=== PATIENT | male | born 1955 | race Caucasian/White ===

== ENCOUNTER → 2019-03-15 07:20 | Outpatient (CLI) | payer OTHER, SELFPAY ==
--- NOTE | 2019-03-15 | DI.MRI.S_ITS ---
PROCEDURE: MR HEAD/BRAIN WO/W CON INDICATIONS: Near syncope TECHNIQUE: Noncontrast axial T1 spin echo, axial T2 fast spin echo, sagittal and axial FLAIR, coronal T2 fast spin echo, axial gradient echo, axial diffusion and ADC through the brain. After the administration of contrast, axial and coronal T1 spin echo with fat saturation through the brain. COMPARISON: None. FINDINGS: Image quality: Excellent. CSF spaces: Basal cisterns are patent. No extra-axial fluid collections. Ventricles are normal in size and shape. Brain: No midline shift. No intracranial bleeds or masses. No abnormal intracranial enhancement. There is cerebral volume loss for age. There is periventricular white matter chronic small vessel ischemic change. The brainstem appears normal. Diffusion-weighted images demonstrate no acute ischemic insults. No chronic ischemic insults. Normal intravascular flow voids are present. Skull and face: Calvarial marrow is normal in signal. Orbits appear normal. Sinuses: Sinuses and mastoids appear clear. IMPRESSION: Diffuse small white matter signal changes, probably represent chronic microvascular ischemic disease, versus statistically less likely demyelination or other infectious, inflammatory, neurodegenerative etiology, technically nonspecific. No abnormal enhancement. No evidence of acute ischemia Dictated by: Gio Montero M.D. on 03/15/2019 at 9:28 Approved by: Gio Montero M.D. on 03/15/2019 at 9:33
== END ==
PROVIDERS: Visit Provider Family Medicine
DX: R55 Syncope and collapse (principal)
CPT/HCPCS: 70553

== ENCOUNTER → 2024-01-19 09:31 | Outpatient (CLI) | payer MEDICARE, SELFPAY ==
--- NOTE | 2024-01-19 10:47 | DI.NM.S_ITS ---
DATE OF SERVICE: 01/19/2024 NUCLEAR CARDIOLOGY MYOCARDIAL PERFUSION STUDY Procedure: Exercise treadmill stress and rest myocardial perfusion imaging with gating to assess ejection fraction and regional wall motion. Ordering Provider: Aamir Clements MD. Indications: The patient is a 68-year-old male with paroxysmal atrial fibrillation and atrial flutter with near syncope and documented myocardial bridge of the LAD. Cardiac Stress: The patient was able to exercise for 9 minutes and 30 seconds on a standard Hans protocol suggesting very good exercise capacity with an DEMARCUS of -27%, achieving 10.2 METS. He had an accelerated heart rate response to exercise with a resting heart rate of 65 bpm while supine, but increasing to 105 bpm with standing, and increasing to 124 bpm within the first minute of exercise, achieving a maximum heart rate of 166 bpm (109% of his predicted maximum). He had a mild hypertensive blood pressure response with a resting blood pressure of 138/90 that increased to a maximum of 208/110. He had no chest discomfort or other anginal symptoms. His resting ECG shows atrial flutter with a controlled ventricular response but with fairly rapid heart rate acceleration with stress. The ST segments appear normal at rest with no significant ST-segment shifts with exercise. There are no other arrhythmias except for occasional PVCs in recovery without any complex ventricular ectopy. At 5 minutes of exercise at a heart rate of 135 bpm, 24.6 millicuries of technetium-99m Myoview was injected and he was imaged 15 minutes later using a gated SPECT acquisition protocol. Earlier in the day while at rest, he had been injected with 11.1 millicuries of technetium-99m Myoview and imaged 15 minutes later, again using a gated SPECT acquisition protocol. Findings: 1. Raw data. There is fair myocardial tracer uptake with some evidence for attenuation artifact. The lung/heart ratio is normal at 0.27 with a normal TID ratio of 0.95. 2. Quantitated gated SPECT: Post-stress ejection fraction is estimated at 62% without any focal wall motion abnormality and specifically the inferior wall appears to have normal contractility. There is mildly increased tracer uptake of the right ventricular free wall which can be a sign of a right ventricular overload condition but requires clinical correlation. The resting ejection fraction is 60% with a similar contraction pattern. Resting end-diastolic volume is mildly increased at 186 mL, but may be reflective of the patient's large body size. 3. Myocardial perfusion imaging: Post-stress supine images show a fairly normal myocardial perfusion pattern except a mild perfusion defect in the mid to distal inferior wall in a pattern consistent with diaphragmatic attenuation, supported by its resolution on the prone images which have a normal uniform perfusion pattern. The resting images show an identical perfusion pattern to the supine images without any improvement in the inferior defect. Impression: 1. Normal myocardial perfusion study for ischemia. 2. Mild, fixed inferior perfusion defect that resolves on prone imaging, most consistent with diaphragmatic attenuation artifact. There is no compelling evidence for any significant myocardial ischemia or previous myocardial infarction. 3. Normal left ventricular systolic function with mildly increased left ventricular volumes. There are no focal wall motion abnormalities. 4. Very good exercise capacity without angina or ECG evidence of ischemia. The patient presented with atrial flutter with a controlled ventricular response although with a fairly prompt accelerated heart rate response to exercise. He had a mild hypertensive blood pressure response and had occasional PVCs, predominantly in the recovery and without any complex ventricular ectopy. dd:01/19/2024 16:39:00 dt DICTATING MD/COPIES TO: MD Kim
--- NOTE | 2024-01-22 10:40 | DI.NM.S_ITS ---
DATE OF SERVICE: 01/19/2024 NUCLEAR CARDIOLOGY MYOCARDIAL PERFUSION STUDY PROCEDURE: Exercise treadmill stress and rest myocardial perfusion imaging with gating to assess ejection fraction and regional wall motion. ORDERING PROVIDER: Aamir Clements MD. INDICATIONS: The patient is a 68-year-old male with a history of paroxysmal atrial fibrillation and atrial flutter with near syncope and previous myocardial bridge of the LAD. CARDIAC STRESS: The patient was able to exercise for 9 minutes and 30 seconds on a standard Hans protocol suggesting very good exercise capacity with an DEMARCUS of -27%, achieving 10.2 METS. He had an accelerated heart rate response to exercise with a resting heart rate of 65 bpm while supine, but increasing to 105 bpm with standing and increasing to 124 bpm within the first minute of exercise, achieving a maximum heart rate of 166 bpm (109% of his predicted maximum). He had a mild hypertensive blood pressure response with a resting blood pressure of 138/90 that increased to a peak of 208/110. He had no chest discomfort or other anginal symptoms. His resting ECG shows atrial flutter with a controlled ventricular response, but with fairly rapid heart rate acceleration. ST segments appeared normal at rest without any significant ST-segment shifts. There were no other arrhythmias except for occasional PVCs in recovery without any complex ventricular ectopy. At 5 minutes of exercise at a heart rate of 135 bpm, 24.6 millicuries of technetium-99m Myoview was injected and he was imaged 15 minutes later using a gated SPECT acquisition protocol. Earlier, in the day while at rest, he had been injected with 11.1 millicuries of technetium-99m Myoview and was imaged 15 minutes later, again using a gated SPECT acquisition protocol. FINDINGS: 1.Raw data. There is fair myocardial tracer uptake with some evidence for attenuation artifact. The lung/heart ratio is normal at 0.27 with a normal TID ratio of 0.95. 2.Quantitated gated SPECT: Post-stress ejection fraction is estimated at 62% without any focal wall motion abnormality and specifically the inferior wall appears to have normal contractility. There is slightly increased tracer uptake over the right ventricular free wall, which can be a sign of a right ventricular stress condition. The resting ejection fraction is 60% with a similar contraction pattern. Resting end-diastolic volume is mildly increased at 186 mL, but may be reflective of the patient's large body size. 3.Myocardial perfusion imaging: Post-stress supine images show a fairly normal myocardial perfusion pattern, although with a mild perfusion defect in the mid to distal inferior wall in a pattern consistent with diaphragmatic attenuation, supported by its resolution on the prone images, revealing a normal perfusion pattern. The resting images show an identical perfusion pattern without any perfusion defects. IMPRESSION: 1.Normal myocardial perfusion study for ischemia. 2.Mild fixed inferior perfusion defect that resolves on prone imaging, most consistent with diaphragmatic attenuation artifact. There is no compelling evidence for any significant myocardial ischemia or previous myocardial infarction. 3.Normal left ventricular systolic function with mildly increased left ventricular volumes. There are no focal wall motion abnormalities. 4.Very good exercise capacity without angina or ECG evidence of ischemia. The patient presented with atrial flutter with a controlled ventricular response, but with a fairly prompt accelerated heart rate response to exercise. He had a mild hypertensive blood pressure response and had occasional premature ventricular contractions, predominantly in the recovery period without any complex ventricular ectopy. Cecil Malagon - NATE/douglas/SCOTT doc#: [id number]/job#: [id number] dd: 01/19/2024 16:39:00 dt: 01/19/2024 21:22:00 DICTATING MD/COPIES TO: Nikos Weir MD; Aamir Clements MD COPIES MNE: ALEJANDRO;
== END ==
PROVIDERS: PCP Physician Assistant Medical; Referring Provider Internal Medicine Cardiovascular Disease; Visit Provider Internal Medicine Cardiovascular Disease
DX: I48.0 Paroxysmal atrial fibrillation (principal); I48.3 Typical atrial flutter
CPT/HCPCS: 78452; 93017; A9502

== ENCOUNTER → 2024-04-21 10:26 | Outpatient (CLI) | payer MEDICARE, SELFPAY ==
--- NOTE | 2024-04-21 10:27 | DI.MRI.S_ITS ---
PROCEDURE: MR KNEE LT WO CON INDICATIONS: INTERNAL DERANGEMENT, LEFT KNEE TECHNIQUE: Noncontrast sagittal PD fast spin echo and T2 fast spin echo with fat saturation, sagittal 3-D FLASH with fat saturation; coronal T1 spin echo and PD fast spin echo with fat saturation, and axial PD fast spin echo with fat saturation through the knee. COMPARISON: [facility] [place], CR, XR KNEE 4+ VIEWS RIGHT, 02/10/2024, 10:10. FINDINGS: Image quality: Excellent. Anterior cruciate ligament: Intact. Posterior cruciate ligament: Intact. Medial collateral ligament: Intact. Lateral collateral ligament: Intact. Medial meniscus: Mild intrasubstance signal in the body of the medial meniscus that does not extend to an articular surface and is most compatible with intrasubstance degeneration. Lateral meniscus: Intact. Medial and lateral tendons: The semimembranosus tendon insertions appear intact. Visualized portions of the pes anserinus tendons appear normal. The popliteus tendon is intact. Iliotibial band appears normal. Anterior structures: The quadriceps and patellar tendons appear intact. 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 The tibial tubercle-trochlear groove distance is approximately 2.0 cm. No edema in the infrapatellar fat pad. Bones and cartilage: No acute trabecular bone injury or fracture. A benign enchondroma is seen in the central portion of the proximal tibial metaphysis. Chronic osseous irregularity is seen at the medial aspect of the patella that may be related to remote prior patellar dislocation. Medial femorotibial cartilage: No focal cartilage defect. Small marginal osteophytes. Lateral femorotibial cartilage: No focal defect. Small marginal osteophytes. Patellofemoral cartilage: Large area full-thickness cartilage loss involving the median ridge and lateral facet of patella and the lateral femoral trochlea with subchondral cystic changes and edema as well as remodeling of the articular surfaces and marginal osteophyte formation. Soft tissues: Moderate joint effusion. A 13 mm ossified loose body is seen in the lateral suprapatellar recess. Additional 21 mm loose body in the superior portion of the suprapatellar recess. No significant medial popliteal cyst. Nonspecific prepatellar subcutaneous soft tissue edema. IMPRESSION: 1. Large area full-thickness cartilage loss in the patellofemoral compartment subchondral cystic changes and edema as well as remodeling of the articular surfaces. Small tricompartmental marginal osteophytes. 2. 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 3. Mild intrasubstance degeneration in the medial meniscus that does not meet imaging criteria for a meniscal tear. 4. Cruciate and collateral ligaments are intact. No acute trabecular bone injury. 5. Moderate joint effusion. Multiple ossified intra-articular loose bodies. Approved by: Jonathan Herzog M.D. on 04/21/2024 at 12:16
== END ==
LOC: MRI 10:27
PROVIDERS: PCP Physician Assistant Medical; Referring Provider Family Medicine; Visit Provider Family Medicine
DX: S83.012A Lateral subluxation of left patella, initial encounter (principal); M23.42 Loose body in knee, left knee; M25.462 Effusion, left knee; M23.92 Unspecified internal derangement of left knee
CPT/HCPCS: 73721